=== PATIENT | female | born 1940 | race Caucasian/White ===

== ENCOUNTER 2017-04-21 10:55 | Emergency (ER) | payer OTHER ==
[~2017-04-21] VITALS: Ht 154.9 cm; Wt 74.7 kg
[~2017-04-21 10:55] MED LIST: AMLODIPINE BESY10 MG PO; ASPIR 8181 M1 PO; ATORVASTATIN CA10 MG PO; GABAPENTIN100 MG PO; HYDROCHLOROTH12.5 M3 PO; LISINOPRIL20 MG PO; LORAZEPAM1 MG PO; MELOXICAM15 MG PO; PRILOSEC40 MG PO
[2017-04-21 11:23] LABS: ADD MIUA? NO; BILIRUBIN NEGATIVE; BLOOD NEGATIVE; COLOR STRAW ((YELLOW)); GLUCOSE (STRIP) NEGATIVE; KETONES NEGATIVE; LEUKOCYTES NEGATIVE; NITRITE NEGATIVE; PROTEIN (STRIP) NEGATIVE; SPECIFIC GRAVITY 1.005 (1.000-1.030); UCUL ADDED? NO; UROBILINOGEN 0.2 MG/DL (0.2-1.0)
[2017-04-21 11:57] LABS: HEMATOCRIT 39.5 % (36.0-46.0); MCH 30.4 PG (29.0-34.0); MCHC 34.7 G/DL (30.0-36.0); MCV 87.6 FL (83-99); MEAN PLAT.VOLUME 11.1 uM^3 (9.5-12.4); PLATELET COUNT 211 K/uL (156-360); RBC DIS.WIDTH-CV 12.5 % (11.8-14.6); RBC DIS.WIDTH-SD 40.8 % (39-53); RED BLOOD COUNT 4.51 M/uL (3.80-5.20); WHITE BLOOD COUNT 6.3 K/uL (4.1-10.2)
[2017-04-21 12:10] LABS: CHLORIDE 102 mEq/L (99-109); POTASSIUM 4.5 mEq/L (3.7-5.4); SODIUM 139 mEq/L (136-147)
[2017-04-21 12:12] LABS: GLUCOSE 96 mg/dL (70-99)
[2017-04-21 12:14] LABS: ANION GAP 10 MEQ/L (2-14); TOTAL BILIRUBIN 0.4 mg/dL (0.0-1.0)
[2017-04-21 12:16] LABS: ALKALINE PHOSPHATASE 80 IU/L (3-129); GFR ESTIMATE (CALCULATED) 46 mL/min/
[2017-04-21 12:17] LABS: UREA NITROGEN (BUN) 21 mg/dL (9-23)
[2017-04-21] MEDS ORDERED: CIPRO500 MG PO (13:20)
[2017-04-21 13:32] VITALS: BP 110/77
== END 2017-04-21 13:33 | disposition home or self-care (01) ==
LOC: EME 10:55
DX: R10.32 Left lower quadrant pain (principal); N39.0 Urinary tract infection, site not specified; I10 Essential (primary) hypertension; Z87.440 Personal history of urinary (tract) infections; Z79.82 Long term (current) use of aspirin
CPT/HCPCS: 74176; 80053; 81003; 85027; 99281; 99284

== ENCOUNTER 2017-12-05 19:24 | Observation (INO) | payer OTHER ==
[~2017-12-05] VITALS: Ht 154.9 cm; Wt 74.4 kg
[~2017-12-05 19:24] MED LIST changes: +ATIVAN1 MG PO; +CIPRO500 MG PO; -LORAZEPAM1 MG PO; -MELOXICAM15 MG PO; +MOBIC7.5 MG PO
[2017-12-05 20:14] LABS: HEMATOCRIT 37.1 % (36.0-46.0); HEMOGLOBIN 12.7 G/DL (11.9-15.5); MCH 30.6 PG (29.0-34.0); MCHC 34.2 G/DL (30.0-36.0); MCV 89.4 FL (83-99); PLATELET COUNT 186 K/uL (156-360); RBC DIS.WIDTH-CV 12.7 % (11.8-14.6); RBC DIS.WIDTH-SD 41.6 % (39-53); RED BLOOD COUNT 4.15 M/uL (3.80-5.20); WHITE BLOOD COUNT 7.7 K/uL (4.1-10.2)
[2017-12-05 20:22] LABS: PTT 29.1 SEC (25-37)
[2017-12-05 20:23] LABS: CHLORIDE 106 mEq/L (99-109); SODIUM 139 mEq/L (136-147)
[2017-12-05 20:25] LABS: GLUCOSE 119 mg/dL (70-99)
[2017-12-05 20:29] LABS: CREATININE 1.3 mg/dL (0.6-1.3); GFR ESTIMATE (CALCULATED) 42 mL/min/
[2017-12-05 20:30] LABS: UREA NITROGEN (BUN) 22 mg/dL (9-23)
[2017-12-05 20:37] LABS: TROP-I INTERPRETATION NEGATIVE; TROPONIN-I < 0.01 ng/mL (0.0-0.30)
[2017-12-05] MEDS ORDERED: PRINZIDE 20-121 EACH PO (21:17)
[2017-12-05] MEDS ORDERED: OMEPRAZOLE40 M1 PO (21:20)
[2017-12-05] MEDS ORDERED: MULTIVITAMIN1 EAC2 PO (21:24)
[2017-12-05] MEDS ORDERED: TYLENOL EXTRA500 MG PO (21:25)
[2017-12-05] MEDS ORDERED: ZYRTEC5 MG PO (21:26)
[2017-12-05] MEDS ORDERED: METOPROLOL SUCC25 MG PO (21:31)
[2017-12-06 01:13] LABS: TROP-I INTERPRETATION NEGATIVE; TROPONIN-I 0.02 ng/mL (0.0-0.30)
[2017-12-06 04:03] VITALS: BP 149/67
[2017-12-06 06:49] LABS: TROP-I INTERPRETATION NEGATIVE; TROPONIN-I 0.02 ng/mL (0.0-0.30)
[2017-12-06 08:41] VITALS: BP 150/67
[2017-12-06 11:58] VITALS: BP 142/61
[2017-12-06 16:01] VITALS: BP 161/68
[2017-12-06 16:26] LABS: APPEARANCE CLEAR ((CLEAR)); BILIRUBIN NEGATIVE; BLOOD NEGATIVE; COLOR STRAW ((YELLOW)); GLUCOSE (STRIP) NEGATIVE; KETONES NEGATIVE; LEUKOCYTES NEGATIVE; NITRITE NEGATIVE; PROTEIN (STRIP) NEGATIVE; SPECIFIC GRAVITY 1.011 (1.000-1.030); UROBILINOGEN 0.2 MG/DL (0.2-1.0)
== END 2017-12-06 19:30 | disposition home or self-care (01) ==
LOC: EME → EDBD 19:24 → EME 19:24 → EDOF 21:25 → 5WEST 21:25 → ENRESERV 21:25 → 5WEST 12-06 03:50
PROVIDERS: Emergency Medicine; Hospitalist
DX: R07.9 Chest pain, unspecified (principal); I10 Essential (primary) hypertension; M19.90 Unspecified osteoarthritis, unspecified site; F41.9 Anxiety disorder, unspecified; F32.9 Major depressive disorder, single episode, unspecified; E78.5 Hyperlipidemia, unspecified; R94.31 Abnormal electrocardiogram [ECG] [EKG]; R06.02 Shortness of breath; K21.9 Gastro-esophageal reflux disease without esophagitis; R53.83 Other fatigue; R60.0 Localized edema; Z79.82 Long term (current) use of aspirin; Z90.710 Acquired absence of both cervix and uterus; Z88.0 Allergy status to penicillin; Z88.5 Allergy status to narcotic agent; Z88.2 Allergy status to sulfonamides; Z90.49 Acquired absence of other specified parts of digestive tract; Z82.49 Family history of ischemic heart disease and other diseases of the circulatory system; Z83.3 Family history of diabetes mellitus
CPT/HCPCS: 71046; 71275; 80048; 81003; 83880; 84443; 84484; 85027; 85610; 85730; 87641; 93005; G0378; J1650